=== PATIENT | male | born 2005 | race Caucasian/White ===

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

== ENCOUNTER 2025-02-07 16:23 | Outpatient (CLI) | payer OTHER, SELFPAY ==
[2025-02-07 16:06] LABS: Microscopic, Urine URINE MICROSCOPIC (MICROSCOPIC)
[2025-02-07 16:21] LABS: Appearance,Urine CLEAR (Clear); Bilirubin,Urine Negative (Negative); Blood, Urine 1+ (Negative); Color,Urine YELLOW (Yellow); Glucose,Urine (UA) Negative (Negative); Ketones,Urine Negative (Negative); Leukocyte Esterase,Urine Negative (Negative); Nitrate,Urine Negative (Negative); Protein,Urine Negative (Negative); Urobilinogen,Urine 0.2 EU/dl (0.2)
[2025-02-07 17:15] LABS: Bacteria,Urine 1+ /lpf; Calcium Oxalate Crystals,Urine Trace /lpf; Mucus,Urine 1+ /lpf
== END 2025-02-07 23:59 | disposition home or self-care (01) ==
LOC: LAB.DROPOF 16:23
PROVIDERS: PCP Urology; Visit Provider Urology
DX: N20.0 Calculus of kidney (principal)
CPT/HCPCS: 81001; 87086

== ENCOUNTER 2025-02-18 07:54 | Outpatient (CLI) | payer OTHER, SELFPAY ==
--- NOTE | 2025-02-18 07:00 | CT_ITS ---
FINAL REPORT TECHNIQUE: Axial images through the abdomen and pelvis were performed without contrast. This study was performed with techniques to keep radiation doses as low as reasonably achievable, (ALARA). Individualized dose reduction techniques using automated exposure control or adjustment of mA and/or kV according to the patient's size were employed. CLINICAL HISTORY: right sided pain x 2 weeks, hx of kidney stones COMPARISON: None FINDINGS: Abdomen: The lung bases are clear. The liver parenchyma is homogeneous. The gallbladder is present. The spleen, pancreas and adrenals are unremarkable. There are multiple bilateral nonobstructing renal stones present. There is a large stone at the right UPJ, measuring 10 mm in size, producing moderate right hydronephrosis. Pelvis: The urinary bladder is unremarkable. The appendix is not visualized. There is no pelvic mass or inflammation. IMPRESSION: 10 mm stone at the right UPJ, producing moderate right hydronephrosis. Reviewed, Interpreted and Dictated by Speedy Diaz MD Transcribed by Shanti Orr Authenticated and [facility]
--- OUTSIDE RECORDS SUMMARY | 2025-02-18 07:57 | XMS_ITS | Data Portability ---
Author Organization [facility] Address [address] [place] [address] Assessment Encounter Date Assessment Date Assessment LastModified by Organization Details LastModified Time 06/26/2023 06/26/2023 Sutures x 3 removed. No concerns with infection identified. Advised to call or return for any new or changing symptoms. [email or web address] Not available 06/26/2023 08:44:35 11/14/2023 11/14/2023 Well-appearing adolescent presents for 18-year [facility]. Developing well. Assessed vision and hearing risk factors, no concern. Administered depression screening, no concerns. STI panel: . Will give immunizations as below. Anticipatory guidance discussed and provided as below, including appropriate nutrition and activity, mental health, sexual activity, and tobacco, alcohol, and drug use. Follow up as scheduled for next [facility], sooner if any new concerns or symptoms. Not available 11/14/2023 17:33:51 Plan of Treatment Reminders Order Date Submit Date Provider Last Modified By Organization Details Last Modified Time Details Appointments None recorded. Lab None recorded. Referral None recorded. Procedures None recorded. Surgeries None recorded. Imaging None recorded. Medication Orders sulfacetami de sodium 10 % eye drops 2023 [facility], [address] [place] [address], [address], 14:59:30 Bactrim DS 800 mg-160 mg tablet 2023 024 [facility], [address] [place] [address], [id number], 14:59:30 Patient TargetsNo targets recorded. Patient Instructions Encounter Date Encounter Id Patient Instructions Last Modified By Organization Details Last Modified Time 11/14/2023 [id number] Well Visit, 12 Years to Young Teen: Care Instructions Not available 11/14/2023 17:23:00 Well Visit, Teens: Care Instructions Not available 11/14/2023 17:23:00 learning about healthy sexuality and your child Not available 11/14/2023 17:23:00 learning about healthy eating for teens Not available 11/14/2023 17:23:00 learning about physical activity for teens Not available 11/14/2023 17:23:00 Reason for Referral None Reported. Problems Name Problem SNOMED Code Status Onset Date Resolution Date Notes Provider Name and Address Organization Details Recorded Time Acute sinusiti s 83980895 Completed 202002/12/2022 Problem Code: J01.90; Problem Code Type: ICD-10; Not Available [facility] 22:20:31 Influenz a 4457731 Active 2020 Problem Code: J10.1; Problem Code Type: ICD-10; Not Available [facility] 22:20:31 Generali zed anxiety disorder 04572722 Active 2020 Problem Code: F41.1; Problem Code Type: ICD-10; Not Available [facility] 22:20:31 Well child 764350534 Active 2020 Not Available [facility] 22:20:31 Normal body mass index 13786970 Active 2020 Problem Code: Z68.52; Problem Code Type: ICD-10; Not Available [facility] 22:20:31 Notes:*Problem Name: Insect bite of unspecified part of neck, initial encounter *Problem Status: Acute *Comments: *Problem Code: S10.96XA *Problem Code Type: ICD-10 *Note Date: 02/12/2022 Problem Notes None recorded. Procedures Surgical History Date Name Laterality Status Provider Name and Address Organization Details Recorded Time 12/19/19 21 tonsillectomy and adenoidectomy completed Not Available [facility] 2022 22:56:07 removal of foreign body completed BRUNO [facility] [employer] [facility] 06/26/2023 08:33:43 Imaging Results None recorded. Procedure Notes None recorded. Medical Equipment None Reported. Allergies No known drug allergies Medications Name Sig Start Date Stop Date Status Note LastModified by Organization Details LastModified Time amoxicillin 500 mg capsule take 1 capsule (500 mg) by oral route every 12 hours for 10 days 02/12 completed Not Available Not Available Not Available prednisone 10 mg tablet take 1 tablet (10 mg) by oral route 3 times per day x3 days 06/26 completed Not Available Not Available Not Available sulfamethox azole 800 mg-trimetho prim 160 mg tablet TAKE ONE TABLET BY MOUTH EVERY TWELVE HOURS FOR 7 DAYS active Not Available Not Available No t Available oxycodone-a cetaminophe n 5 mg-325 mg tablet TAKE 1 TABLET BY MOUTH EVERY 4 HOURS NEEDED FOR SEVERE PAIN 06/14 completed Not Available Not Available Not Available tamsulosin 0.4 mg capsule TAKE 1 CAPSULE BY MOUTH ONCE DAILY 06/14 completed Not Available Not Available Not Available sulfacetami de sodium 10 % eye drops INSTILL 1 DROP INTO AFFECTED EYE(S) BY OPHTHALMI C ROUTE EVERY 2-3 HOURS DURING THE DAY AND LESS FREQUENTL Y AT NIGHT active Not Available Not Available No t Available paroxetine 20 mg tablet take 1 tablet (20 mg) by oral route once daily 06/26 completed Not Available Not Available Not Available ondansetron 4 mg disintegrat ing tablet DISSOLVE 1 TABLET IN MOUTH EVERY 8 HOURS NEEDED FOR NAUSEA AND VOMITING 06/14 completed Not Available Not Available Not Available Vitals Date Recorded Body height Body mass index (BMI) Body mass index (BMI) [Percentile] Per age and sex Body weight Body temperature Heart rate Oxygen saturation Oxygen saturation in Arterial blood by Pulse oximetry Systolic blood pressure Diastolic blood pressure Provider Name and Address Organization Details Last Updated DateTime 4 180.34 cm 19.8 kg/m2 17 % 10689.1 2 g 97.6 [degF] 66 /min 97 % 97 % 100 mm[Hg] 68 mm[Hg] Vernell Adams [facility] 4 16:55:32 Date Recorded Body height Body mass index (BMI) Body mass index (BMI) [Percentile] Per age and sex Body weight Body temperature Heart rate Oxygen saturation Oxygen saturation in Arterial blood by Pulse oximetry Systolic blood pressure Diastolic blood pressure Provider Name and Address Organization Details Last Updated DateTime 4 180.34 cm 20.6 kg/m2 23 % 30644.6 7 g 98 [degF] 85 /min 98 % 98 % 134 mm[Hg] 79 mm[Hg] SOLIS COOKLESLIE [facility] 4 13:13:26 Date Recorded Body weight Body mass index (BMI) Body mass index (BMI) [Percentile] Per age and sex Body height Heart rate Oxygen saturation Oxygen saturation in Arterial blood by Pulse oximetry Systolic blood pressure Diastolic blood pressure Provider Name and Address Organization Details Last Updated DateTime 3 74510.8 2 g 17.9 kg/m2 3 % 180.34 cm 86 /min 98 % 98 % 107 mm[Hg] 74 mm[Hg] BRUNO DURHAM [facility] 3 08:36:50 Social History Question Answer Notes LastModified by Organizat ion Details LastModified Time Tobacco Smoking Status Never Smoker BRUNO DURHAM [facility] 06/26/2023 08:31:23 Do You Have An Advance Directive? No [email or web address] Information not available 06/26/2023 Is Your Home Air Conditioned? Yes Information not available 06/26/2023 Are You Blind Or Do You Have Difficulty Seeing? No [email or web address] Information not available 06/26/2023 What Is Your Level Of Caffeine Consumption? None [email or web address] Information not available 06/26/2023 Are You A Caregiver? No [email or web address] Information not available 06/26/2023 Have You Been To An Area Known To Be High Risk For COVID-19? No [email or web address] Information not available 06/26/2023 Are You Deaf Or Do You Have Serious Difficulty Hearing? No [email or web address] Information not available 06/26/2023 What Type Of Diet Are You Following? REGULAR Information not available 06/26/2023 Have There Been Any Changes To Your Family Or Social Situation? No [email or web address] Information no t available 06/26/2023 What Grade Are You In? QV30397-8 [email or web address] Information not available 06/26/2023 Are There Any Guns Present In Your Home? Yes [email or web address] Information not available 06/26/2023 Which Of Your Hands Is Dominant? Right [email or web address] Information not available 06/26/2023 What Is Your Home Situation? Mother [email or web address] Information not available 06/26/2023 Do You Have A Medical Power Of Sr. Payroll Manager? No [email or web address] Information not available 06/26/2023 What Was The Date Of Your Most Recent Tobacco Screening? 06/14/2024 [email or web address] Information not available 06/14/2024 Do You Have Any Pets? Yes [email or web address] Information not available 06/26/2023 What Is Your Relationship Status? Single [email or web address] Information not available 06/26/2023 What Is The Name Of Your School? Homeschooled Information not available 06/26/2023 Do You Have Smoke And Carbon Monoxide Detectors In Your Home? Yes [email or web address] Information not available 06/26/2023 Are You Passively Exposed To Smoke? No [email or web address] Information no t available 06/26/2023 Are There Any Smokers In Your House? No Information not available 06/26/2023 Do You Use Sunscreen Routinely? Yes Information not available 06/26/2023 Has Tobacco Cessation Counseling Been Provided? No Information not available 06/26/2023 Have You Recently Traveled Abroad? No [email or web address] Information not available 06/26/2023 Do You Have Difficulty Walking Or Climbing Stairs? No Information not available 06/26/2023 Are You Currently In School? Yes [email or web address] Information not available 06/26/2023 Sex: Male Functional Status Question Answer Note LastModified by Organizat ion Details LastModified Time Do you use any illicit or recreational drugs? No Information not available 06/26/2023 Do you or have you ever used any other forms of tobacco or nicotine? No [email or web address] Information not available 06/26/2023 What is your level of alcohol consumption? None [email or web address] Information not available 06/26/2023 Are you currently employed? No [email or web address] Information not available 06/26/2023 Do you have transportation difficulties? No [email or web address] Information not available 06/26/2023 Are you able to walk? [place]WOREST [email or web address] Information not available 06/26/2023 Do you have difficulty doing errands alone? No [email or web address] Information not available 06/26/2023 Are you able to care for yourself? Yes [email or web address] Information not available 06/26/2023 Do you have difficulty dressing or bathing? No [email or web address] Information not available 06/26/2023 Mental Status Question Answer Note LastModified by Organization D etails LastModified Time Do you have difficulty concentrating, remembering or making decisions? No [email or web address] Information no t available 06/26/2023 Family History Relationship Description Onset Age of this Age Resolved Age Notes LastModified by Organization Details LastModified Time Maternal Grandfather Heart disease Not available 08:30:15 Medical History Condition Response Hospitalizations N Allergies (Food, seasonal, environmental ) Y Emergency room visit since last appointm ent. Y Immunizations Vaccine Type Date Status Note Provider Nam e and Address Organization Details Recorded Time Meningococcal MCV4O 4 completed Shandra Bronson APRN [address] [place], [address], [employer] 11/14/2023 18:04:10 HPV9 4 completed Shandra Bronson APRN [address] [place], [address], [employer] 11/14/2023 18:04:10 DTaP 6 completed Not Available [facility] 2022 23:36:29 DTaP 6 completed Not Available [facility] 2022 23:36:29 DTaP 0 completed Not Available [facility] 2022 23:36:29 DTaP 5 completed Not Available [facility] 2022 23:36:29 DTaP 6 completed Not Available [facility] 2022 23:36:29 MMR 6 completed Not Available [facility] 2022 23:36:30 MMRV 6 completed Not Available [facility] 2022 23:36:30 IPV 6 completed Not Available [facility] 2022 23:36:30 IPV 6 completed Not Available [facility] 2022 23:36:30 IPV 0 completed Not Available [facility] 2022 23:36:30 IPV 5 completed Not Available [facility] 2022 23:36:30 Tdap 7 completed Not Available [facility] 2022 23:36:30 varicella 0 completed Not Available [facility] 2022 23:36:30 Hib, unspecified formulation 6 completed Vernell Bryan null, [employer] 11/14/2023 16:32:26 Hib, unspecified formulation 5 completed Vernell Bryan null, [employer] 11/14/2023 16:32:26 Hib, unspecified formulation 6 completed Vernell Bryan null, [employer] 11/14/2023 16:32:26 pneumococcal, unspecified formulation 6 completed Not Available [facility] 2022 23:36:30 pneumococcal, unspecified formulation 6 completed Not Available [facility] 2022 23:36:31 pneumococcal, unspecified formulation 5 completed Not Available [facility] 2022 23:36:31 Hep B, unspecified formulation 6 completed Not Available [facility] 2022 23:36:31 Hep B, unspecified formulation 6 completed Not Available [facility] 2022 23:36:31 Hep B, unspecified formulation 5 completed Not Available [facility] 2022 23:36:31 Past Encounters Encounter ID Performer Location Encounter Start Date Encounter Closed Date Diagnosis/Indication Diagnosis SNOMED-CT Code Diagnosis ICD10 Code Diagnosis Note [id number] KLEBER MARADIAGA [facility] [address] 0 06/26/2023 08:08:40 06/26/2023 08:51:05 Removal of suture 82421664 Z48.02 [id number] [place] [address] 11/14/2023 16:26:15 11/14/2023 17:50:21 Well child 399280468 Z00.129 Body mass index less than 20 867112242 Z68.1 [id number] [place] [address] 06/14/2024 13:04:56 06/14/2024 13:39:07 Impetigo 94179854 L01.00 Customary discussion of prescribed medication benefits, side effects, and compliance was done. Patient was instructed on proper skin care. Discussed disease presentati on, treatment options, progressio n, complicati ons, and outcomes with patient during this office visit. Acute conj unctivitis of left eye 4770411027 55165 H10.32 Avoid rubbing eyes, handwashin g and use of eye gtts explained. Advised to proceed to ER if he develops visual deficit, eye pain, or progressio n of rash. Body mass index 20-24 - normal 853746097 Z68.20 Health Concerns Section Related Observation LastModified by Organization Detai ls LastModified Time None Recorded Concern Status LastModified by Organization Details LastModified Time None Recorded Advance Directives Directive N: Payers Insurance Date Sequence Insurance Name Policy Number Policy Kessler Covered Member ID Kessler Member ID Guarantor Name 11/18/2023 [place] [employer] [place] [place]ILL[place] (MEDICAID) Baltazar Ulrich [id number] Baltazar Ulrich 06/26/2023 1 *SELF PAY* Kiko Ulrich 06/14/2024 1 [facility] (MEDICAID [facility] Baltazar Ulrich [id number] Baltazar Ulrich Notes Date Note Type Note Provider Name and Address Organization Details Recorded Time 06/26/2023 text/html Here for suture removal. 3 stitches placed to right small finger 10 days ago. Laceration sustained while cutting tin. No fevers or pain to that joint. NEO RICHARD [address] [place], [address], [employer] 06/26/2023 08:45:02 11/14/2023 text/html Denies concerns. Feels well. Shandra Bronson APRN [address] [place], [address], [employer] 11/14/2023 18:04:43 06/14/2024 text/html General Rash/Ski n LesionReported bypatient.Location:f [facility]; abdomen Quality:painful;weep ing;red;localized Severity:moderate; worsening Duration:has noted for <1 week Onset/Timing:gradual onset Context:no new detergents or skin products;others with similar symptoms Associated Symptoms:no fever; no cold symptoms; no nausea; no vomiting; no diarrhea; no urinary symptoms; no obesity; no asthma; no depression Shandra Bronson APRN [address] [place], [address], [facility] 06/14/2024 14:20:25
== END 2025-02-18 23:59 | disposition home or self-care (01) ==
LOC: RAD 07:55
PROVIDERS: PCP Nurse Practitioner Family; Visit Provider Urology
DX: N13.30 Unspecified hydronephrosis (principal); N20.0 Calculus of kidney
CPT/HCPCS: 74176